=== PATIENT | female | born 1990 | race African-American/Black ===

== ENCOUNTER 2021-09-26 00:20 | Inpatient (IN) | payer OTHER ==
[~2021-09-26] VITALS: Ht 152.4 cm; Wt 81.6 kg
[2021-09-26] MEDS ORDERED: PNV1TABL76 PO (00:29)
[2021-09-26] MEDS ORDERED: ACETAMINOPHEN 500MG TABLET PO NR (01:45)
[2021-09-26] MEDS: LACTATED RINGERS 1,000 ML IV NR ×2 (01:59→03:32)
[2021-09-26 02:13] LABS: CLARITY URINE CLEAR (CLEAR); COLOR URINE YELLOW (YELLOW); KETONES URINE NEGATIVE (NEGATIVE); LEUKOCYTE ESTERASE URINE 1+ (NEGATIVE); NITRITE URINE NEGATIVE (NEGATIVE); OCCULT BLOOD URINE NEGATIVE (NEGATIVE); PH URINE 6.5 (4.5-8.0); PROTEIN URINE TRACE (NEGATIVE); SPECIFIC GRAVITY URINE 1.023 (1.005-1.030); UROBILINOGEN URINE 0.2 E.U./dL (0.2-1.0)
[2021-09-26] MEDS ORDERED: BUTORPHANOL TARTRATE 2 MG/ML VIAL ONE (03:13)
[2021-09-26] MEDS ORDERED: BUTORPHANOL TARTRATE 2 MG/ML VIAL IV PRN (03:15)
[2021-09-26] MEDS ORDERED: NALOXONE HCL 0.4 MG/ML 1ML VIAL IM PRN (03:15)
[2021-09-26] MEDS ORDERED: LIDOCAINE HCL 1% 20ML VIAL (Pyxis) INJ INFIL SCH (03:30)
[2021-09-26] MEDS ORDERED: LACTATED RINGERS 1,000 ML IV SCH (03:30)
[2021-09-26] MEDS ORDERED: AMPICILLIN 2GM in NS 100ML 100 ML IV SCH (03:30)
[2021-09-26 03:36] LABS: BASOPHILS % 0.7 % (0.0-2.0); EOSINOPHILS % 0.3 % (0.0-5.0); HEMATOCRIT. 32.4 % (36.0-48.0); HEMOGLOBIN. 10.8 g/dL (12.0-16.0); MEAN CORPUSCULAR HEMOGLOBIN 29.3 pg (28.0-32.0); MEAN CORPUSCULAR VOLUME 88.3 fL (81.0-99.0); MONOCYTES % 6.3 % (2.0-8.0); NEUTROPHILS % 74.7 % (40.0-76.0); PLATELET 210 x1000/uL (130-400); RED BLOOD CELL COUNT 3.67 mill/uL (4.2-5.4); RED CELL DISTRIBUTION WIDTH 14.9 % (11.6-14.6)
[2021-09-26] MEDS ORDERED: MINERAL OIL 30ML BOTTLE TOP NR (04:00)
[2021-09-26] MEDS: DEXT 5%/LR + PITOCIN 20UNITS/L 1,000 ML IV SCH ×2 (04:26→05:40)
[2021-09-26 06:00] VITALS: BP 104/58
[2021-09-26 06:07] LABS: HEPATITIS B SURFACE ANTIGEN NEGATIVE
[2021-09-26] MEDS ORDERED: IBUPROFEN 400MG TABLET PO PRN (06:30)
[2021-09-26] MEDS ORDERED: METHYLERGONOVINE MALEATE 0.2 MG/ML IM PRN (06:30)
[2021-09-26] MEDS ORDERED: DEXT 5%/LR + PITOCIN 20UNITS/L 1,000 ML IV SCH (06:30)
[2021-09-26] MEDS ORDERED: RHO(D) IMMUNE GLOBULIN 300 MCG/SYR IM PRN (06:30)
[2021-09-26 07:44] LABS: *AMPHETAMINES SCREEN URINE NEGATIVE (NEGATIVE); *BARBITURATES SCREEN URINE NEGATIVE (NEGATIVE); *BENZODIAZEPINES SCREEN URINE NEGATIVE (NEGATIVE)
[2021-09-26 07:45] LABS: *COCAINE SCREEN URINE NEGATIVE (NEGATIVE); CANNABINOID URINE SCREEN NEGATIVE (NEGATIVE); METHADONE URINE SCREEN NEGATIVE (NEGATIVE); OPIATES URINE SCREEN NEGATIVE (NEGATIVE); PHENCYCLIDINE URINE SCREEN NEGATIVE (NEGATIVE)
[2021-09-26 07:47] VITALS: BP 108/58
[2021-09-26] MEDS: PRENATAL VIT/FE FUMARATE/FA TABLET PO SCH (08:36)
[2021-09-26] MEDS ORDERED: AMPICILLIN 1,000 MG in SODIUM CHLORIDE 0.9% 50 ML IV SCH (10:00)
[2021-09-26 12:20] LABS: BASOPHILS % 0.1 % (0.0-2.0); HEMATOCRIT. 29.4 % (36.0-48.0); HEMOGLOBIN. 9.7 g/dL (12.0-16.0); LYMPHOCYTES % 11.6 % (20.0-50.0); MEAN CORPUSCULAR HEMOGLOBIN 29.2 pg (28.0-32.0); MEAN CORPUSCULAR VOLUME 88.5 fL (81.0-99.0); MEAN PLATELET VOLUME 8.8 fl (7.4-10.4); MONOCYTES % 7.6 % (2.0-8.0); NEUTROPHILS % 80.7 % (40.0-76.0); PLATELET 185 x1000/uL (130-400); RED BLOOD CELL COUNT 3.32 mill/uL (4.2-5.4)
[2021-09-26 12:50] LABS: INR 0.9; PARTIAL THROMBOPLASTIN TIME 28.8 sec (23.4-31.0); PROTHROMBIN TIME 10.2 sec (9.6-11.0)
[2021-09-26 15:08] VITALS: BP 118/52
[2021-09-26 20:00] VITALS: BP 104/56
[2021-09-26] MEDS: IBUPROFEN 800MG TABLET PO PRN (21:42)
[2021-09-27 02:30] VITALS: BP 117/72
[2021-09-27] MEDS: IBUPROFEN 800MG TABLET PO PRN ×2 (03:33→09:45)
[2021-09-27] MEDS ORDERED: IBUP-2030 PO (07:04)
[2021-09-27 07:31] VITALS: BP 92/51
[2021-09-27] MEDS ORDERED: INFLUENZA VACCINE 05/PF 0.5 ML SYRINGE IM ONE (08:00)
[2021-09-27] MEDS: PRENATAL VIT/FE FUMARATE/FA TABLET PO SCH (09:45)
== END 2021-09-27 13:45 | disposition home or self-care (01) | DRG 560 ==
LOC: 8 EST LDRP 00:20 → OBSVTOIN 00:20 → 8EST 05:51
PROVIDERS: ATTEND Obstetrics & Gynecology
PROC: 10E0XZZ Delivery of Products of Conception, External Approach (ICD-10-PCS; principal; 2021-09-26)
DX: O48.0 Post-term pregnancy (principal); Z37.0 Single live birth; O77.0 Labor and delivery complicated by meconium in amniotic fluid; Z20.822 Contact with and (suspected) exposure to COVID-19; Z3A.40 40 weeks gestation of pregnancy
CPT/HCPCS: 36415; 76805; 76818; 80305; 81003; 85025; 86592; 86703; 86762; 86850; 86900; 87340; 87426; 90686; 96360; 96361; 99281; J0290; J0595; J2310; J2590; J3490; J7120

== ENCOUNTER 2025-04-21 17:37 | Inpatient (IN) | payer OTHER, MEDICAID ==
[~2025-04-21] VITALS: Ht 154.9 cm; Wt 70.8 kg
[2025-04-21] VITALS (10 sets, daily range): BP systolic 123–136; BP diastolic 83–90; PULSE 75–88; RESP 9–20; TEMP 36.7; O2SAT 96–100
[~2025-04-21 17:37] MED LIST: IBUP-2030 PO; PNV1TABL76 PO
[2025-04-21] MEDS: NALOXONE HCL 0.4MG/ML 1ML VIAL IV ONE ×2 (18:23→20:10)
[2025-04-21] MEDS: ONDANSETRON HCL 4MG/2ML INJ IV ONE (18:23)
[2025-04-21] MEDS ORDERED: NALOXONE 4 MG in SODIUM CHLORIDE 0.9% 246 ML IV ONE (20:00)
[2025-04-21] MEDS ORDERED: DOCUSATE SODIUM 100MG CAPSULE PO PRN (20:15)
[2025-04-21] MEDS ORDERED: CLONIDINE 0.1MG TABLET PO PRN (20:15)
[2025-04-21 20:44] LABS: BASOPHILS % 0.1 % (0.0-2.0); EOSINOPHILS % 0.1 % (0.0-5.0); HEMATOCRIT. 44.6 % (36.0-48.0); HEMOGLOBIN. 13.9 g/dL (12.0-16.0); LYMPHOCYTES % 14.3 % (20.0-50.0); MEAN CORPUSCULAR HEMOGLOBIN 28.4 pg (28.0-32.0); MEAN CORPUSCULAR HGB CONC 31.3 g/dL (31.0-37.0); MEAN CORPUSCULAR VOLUME 90.6 fL (81.0-99.0); MEAN PLATELET VOLUME 8.1 fl (7.4-10.4); MONOCYTES % 7.4 % (2.0-8.0); NEUTROPHILS % 78.1 % (40.0-76.0); PLATELET 301 x1000/uL (130-400); RED BLOOD CELL COUNT 4.92 mill/uL (4.2-5.4); RED CELL DISTRIBUTION WIDTH 14.8 % (11.6-14.6); WHITE BLOOD COUNT 13.2 x1000/uL (4.5-11.0)
[2025-04-21 20:52] LABS: CHLORIDE 104 mEq/L (98-107); POTASSIUM 4.8 mEq/L (3.5-5.1); SODIUM 132 mEq/L (136-145)
[2025-04-21 20:53] LABS: CALCIUM 9.5 mg/dL (8.7-10.4); CARBON DIOXIDE 22 mEq/L (21-32)
[2025-04-21 20:58] LABS: CREATININE 0.8 mg/dL (0.6-1.0); ETHANOL BLOOD < 10 mg/dL (<10); GLUCOSE 161 mg/dL (70-105); UREA NITROGEN BLOOD 14 mg/dL (9-23)
[2025-04-21 21:00] LABS: ALANINE AMINOTRANSFERASE 19 IU/L (10-49); ALBUMIN 4.6 g/dL (3.2-4.8); ASPARTATE AMINOTRANSFERASE 23 IU/L (<34); BILIRUBIN TOTAL 0.2 mg/dL (0.1-1.0); PROTEIN TOTAL 7.6 g/dL (6.0-8.3)
[2025-04-21] MEDS: NALOXONE 4 MG in SODIUM CHLORIDE 0.9% 246 ML IV ONE (21:05)
[2025-04-21] MEDS: IPRATROPIUM/ALBUTEROL 0.5-3(2.5)MG/3ML NEB NEB PRN (21:28)
[2025-04-21 23:53] LABS: CREATINE KINASE MB FRACTION 2.8 ng/mL (0.5-3.6); TROPONIN I HIGH SENSITIVITY 7 ng/L (3.0-34)
[2025-04-22] VITALS (27 sets, daily range): BP systolic 116–141; BP diastolic 66–99; PULSE 72–91; RESP 9–19; TEMP 36.3–36.7; O2SAT 89–100
[2025-04-22] MEDS: GUAIFENESIN 200MG/10ML SUGAR FREE UDC PO PRN (01:23)
[2025-04-22] MEDS: METHYLPREDNISOLONE SOD SUCC 40MG/ML (ACT-O-VIAL) IV SCH (01:23)
[2025-04-22] MEDS: DIPHENHYDRAMINE 50MG/ML VIAL IV PRN (01:23)
[2025-04-22] MEDS: PANTOPRAZOLE SODIUM 40 MG/VIAL IV SCH (04:04)
[2025-04-22] MEDS: AZITHROMYCIN 500MG/250ML 250 ML IV SCH (04:05)
[2025-04-22] MEDS: CEFTRIAXONE 1GM/50ML 50 ML IV SCH (05:25)
[2025-04-22 06:04] LABS: CREATINE KINASE MB FRACTION 11.2 ng/mL (0.5-3.6)
[2025-04-22 08:31] LABS: HEMATOCRIT 39.6 % (36.0-48.0); HEMOGLOBIN 12.8 g/dL (12.0-16.0); MEAN CORPUSCULAR HEMOGLOBIN 28.1 pg (28.0-32.0); MEAN CORPUSCULAR HGB CONC 32.3 g/dL (31.0-37.0); PLATELET 292 x1000/uL (130-400); RED BLOOD CELL COUNT 4.55 mill/uL (4.2-5.4); RED CELL DISTRIBUTION WIDTH 14.3 % (11.6-14.6); WHITE BLOOD COUNT 10.4 x1000/uL (4.5-11.0)
[2025-04-22 08:42] LABS: CHLORIDE 102 mEq/L (98-107); POTASSIUM 4.7 mEq/L (3.5-5.1); SODIUM 133 mEq/L (136-145)
[2025-04-22 08:44] LABS: CARBON DIOXIDE 21 mEq/L (21-32)
[2025-04-22 08:49] LABS: CREATININE 0.7 mg/dL (0.6-1.0); GLUCOSE 178 mg/dL (70-105); UREA NITROGEN BLOOD 17 mg/dL (9-23)
== END 2025-04-22 15:12 | DRG 917 ==
LOC: ER 17:37 → EDBEDREQSVC 19:55 → EDBEDREQTM 19:55 → EDBEDREQ 19:55 → CVICU 20:10 → EDBEDREQ 20:22 → EDBEDREQTM 20:22 → ENRESERV 20:28 → 7EST 04-22 10:24
PROVIDERS: ADMIT Internal Medicine; ATTEND Internal Medicine
DX: T40.411A Poisoning by fentanyl or fentanyl analogs, accidental (unintentional), initial encounter (principal); G92.9 Unspecified toxic encephalopathy; J69.0 Pneumonitis due to inhalation of food and vomit; J96.01 Acute respiratory failure with hypoxia; E87.1 Hypo-osmolality and hyponatremia; R73.9 Hyperglycemia, unspecified; D72.820 Lymphocytosis (symptomatic); F43.10 Post-traumatic stress disorder, unspecified; F32.A Depression, unspecified; Y92.89 Other specified places as the place of occurrence of the external cause; Z79.899 Other long term (current) drug therapy
CPT/HCPCS: 36415; 71045; 80048; 80053; 80320; 82553; 82962; 83036; 83735; 84100; 84145; 84484; 85025; 85027; 86141; 93005; 94070; 94640; 94664; 98960; 99291; A4606; J0456; J0696; J1200; J2310; J2405; J2470; J2919; J7050; J7070; G0480